=== PATIENT | male | born 1950 | race Hispanic/Latino ===

== ENCOUNTER 2022-06-08 16:29 | Inpatient (IN) | payer OTHER ==
[~2022-06-08] VITALS: Ht 170.2 cm; Wt 96.8 kg
[~2022-06-08 16:29] MED LIST: METO5 PO
[2022-06-08 17:03] LABS: BASOPHILS % (AUTO) 0.3 % (0.0-5.0); EOSINOPHILS % (AUTO) 0.7 % (0.0-8.0); HEMATOCRIT 54.6 % (42-54); LYMPHOCYTES % (AUTO) 18.3 % (21.0-51.0); MEAN CORPUSCULAR HEMOGLOBIN 26.8 pg (27.0-33.0); MEAN CORPUSCULAR HGB CONC 32.6 g/dL (32.0-36.0); MEAN CORPUSCULAR VOLUME 82.2 fL (79-99); MONOCYTES % (AUTO) 14.5 % (3.0-13.0); PLATELET COUNT (AUTO) 331 K/uL (130-400); RED BLOOD CELL COUNT(AUTO) 6.64 MIL/uL (4.50-6.20); WHITE BLOOD COUNT (AUTO) 5.7 K/uL (4.8-10.8)
[2022-06-08 17:18] LABS: CREATININE 3.1 mg/dL (0.5-1.5); POTASSIUM 4.5 mmol/L (3.5-5.1); TOTAL PROTEIN, SERUM 9.2 g/dL (6.0-8.3)
[2022-06-08] MEDS ORDERED: 0.9%NACL 1000ML 1,000 ML IV ONE ×2 (17:30→19:00)
[2022-06-08] MEDS ORDERED: ONDANSETRON 4MG INJ IVP ONE (17:30)
[2022-06-08] MEDS ORDERED: MAGNESIUM SULFATE 1 GM/2 ML VIAL IM ONE (21:00)
[2022-06-08] MEDS ORDERED: DiphenhydrAMINE HCL 50 MG/ML VIAL IV PRN (21:00)
[2022-06-08] MEDS ORDERED: ROCURONIUM BROMIDE 10MG/1ML 5ML VL IV ONE (21:00)
[2022-06-08] MEDS ORDERED: AMIODARONE 150MG VIAL IV ONE ×2 (21:00)
[2022-06-08] MEDS ORDERED: EPINEPHRINE 1MG/10ML(1:10,000) 0.1 MG/ML SYG IVP ONE (21:00)
[2022-06-08] MEDS ORDERED: ETOMIDATE 20MG VIAL IVP ONE (21:00)
[2022-06-08] MEDS ORDERED: ONDANSETRON 4MG INJ IV PRN (21:00)
[2022-06-08] MEDS ORDERED: LIDOCAINE PF 100MG/5ML (2%) SYRINGE 5ML IVP ONE (21:00)
[2022-06-08] MEDS ORDERED: SODIUM BICARB 8.4% 50ML SYRINGE IVP ONE ×2 (21:00)
[2022-06-08] MEDS ORDERED: DOPAMINE HCL 400 MG/D5%-WATER 250 ML IV ONE (21:00)
[2022-06-08] MEDS: FAMOTIDINE 20MG VIAL IV SCH (21:10)
[2022-06-08] MEDS: 0.9%NACL 1000ML 1,000 ML IV SCH (21:10)
[2022-06-09] VITALS (7 sets, daily range): BP systolic 141–161; BP diastolic 72–85
[2022-06-09 06:49] LABS: HEMATOCRIT 49.9 % (42-54); MEAN CORPUSCULAR HEMOGLOBIN 26.7 pg (27.0-33.0); MEAN CORPUSCULAR HGB CONC 32.3 g/dL (32.0-36.0); MEAN CORPUSCULAR VOLUME 82.8 fL (79-99); RED BLOOD CELL COUNT(AUTO) 6.03 MIL/uL (4.50-6.20); RED CELL DISTRIBUTION WIDTH 14.6 % (11.0-15.5)
[2022-06-09] MEDS: 0.9%NACL 1000ML 1,000 ML IV SCH ×2 (06:51→20:01)
[2022-06-09 06:57] LABS: HEMOGLOBIN A1C 6.1 % (4.0-6.0)
[2022-06-09 06:59] LABS: CREATININE 2.5 mg/dL (0.5-1.5); POTASSIUM 4.3 mmol/L (3.5-5.1)
[2022-06-09] MEDS: FAMOTIDINE 20MG VIAL IV SCH (20:35)
[2022-06-10] VITALS (9 sets, daily range): BP systolic 95–157; BP diastolic 45–86
[2022-06-10] MEDS: MORPHINE 2 MG SYG IVP PRN ×2 (00:30→17:45)
[2022-06-10] MEDS: NITROGLYCERIN 0.4 MG SL TAB SL PRN ×6 (01:15→16:54)
[2022-06-10 05:26] LABS: BASOPHILS % (AUTO) 0.2 % (0.0-5.0); EOSINOPHILS % (AUTO) 0.2 % (0.0-8.0); HEMATOCRIT 48.5 % (42-54); LYMPHOCYTES % (AUTO) 8.2 % (21.0-51.0); MEAN CORPUSCULAR HEMOGLOBIN 26.7 pg (27.0-33.0); MEAN CORPUSCULAR HGB CONC 31.1 g/dL (32.0-36.0); MEAN CORPUSCULAR VOLUME 85.7 fL (79-99); MONOCYTES % (AUTO) 7.8 % (3.0-13.0); NEUTROPHILS % (AUTO) 83.1 % (40.0-77.0); PLATELET COUNT (AUTO) 282 K/uL (130-400); RED BLOOD CELL COUNT(AUTO) 5.66 MIL/uL (4.50-6.20); RED CELL DISTRIBUTION WIDTH 14.5 % (11.0-15.5); WHITE BLOOD COUNT (AUTO) 5.7 K/uL (4.8-10.8)
[2022-06-10 05:45] LABS: ALBUMIN 3.2 g/dL (3.5-5.0); CREATININE 1.9 mg/dL (0.5-1.5); POTASSIUM 4.7 mmol/L (3.5-5.1); TOTAL PROTEIN, SERUM 7.5 g/dL (6.0-8.3)
[2022-06-10] MEDS: 0.9%NACL 1000ML 1,000 ML IV SCH ×2 (06:00→13:00)
[2022-06-10] MEDS ORDERED: ASPIRIN 81 MG EC TAB PO SCH (17:30)
[2022-06-10] MEDS ORDERED: ATORVASTATIN 40 MG TABLET PO SCH (17:30)
[2022-06-10] MEDS ORDERED: HEPARIN 25,000 UNITS/250ML D5W 250 ML IV SCH (17:43)
[2022-06-10 18:09] LABS: BASOPHILS % (AUTO) 0.3 % (0.0-5.0); EOSINOPHILS % (AUTO) 0.5 % (0.0-8.0); HEMATOCRIT 46.4 % (42-54); LYMPHOCYTES % (AUTO) 8.8 % (21.0-51.0); MEAN CORPUSCULAR HEMOGLOBIN 26.5 pg (27.0-33.0); MEAN CORPUSCULAR HGB CONC 31.7 g/dL (32.0-36.0); MEAN CORPUSCULAR VOLUME 83.6 fL (79-99); MONOCYTES % (AUTO) 11.3 % (3.0-13.0); NEUTROPHILS % (AUTO) 78.7 % (40.0-77.0); PLATELET COUNT (AUTO) 323 K/uL (130-400); RED BLOOD CELL COUNT(AUTO) 5.55 MIL/uL (4.50-6.20); RED CELL DISTRIBUTION WIDTH 14.4 % (11.0-15.5); WHITE BLOOD COUNT (AUTO) 7.5 K/uL (4.8-10.8)
[2022-06-10 18:23] LABS: INR 1.03 (0.85-1.15); PROTHROMBIN TIME 11.2 SEC (9.6-11.6)
[2022-06-10 18:24] LABS: PARTIAL THROMBOPLASTIN TIME 30.3 SEC (26.3-35.5)
[2022-06-10] MEDS ORDERED: METOPROLOL SUCCINATE 25 MG TAB.SR.24H PO SCH (18:30)
[2022-06-10] MEDS ORDERED: IOHEXOL 350 MG/ML 100ML INFUS..BTL IV ONE (19:10)
[2022-06-10] MEDS ORDERED: AMIODARONE 900MG VIAL 150 MG in DEXTROSE 5%-WATER 100 ML IV SCH (19:30)
[2022-06-10] MEDS ORDERED: AMIODARONE 900MG VIAL 540 MG in DEXTROSE 5%-WATER 300 ML IV SCH (19:30)
[2022-06-10] MEDS ORDERED: PHARMACY COMMUNICATION MISC SCH (19:30)
[2022-06-10] MEDS ORDERED: NOREPINEPHRINE 4MG/NS 250ML IV SCH (19:30)
[2022-06-10] MEDS ORDERED: AMIODARONE 900MG VIAL 360 MG in DEXTROSE 5%-WATER 200 ML IV SCH (19:30)
[2022-06-10] MEDS ORDERED: NACL 0.9% IV SCH (20:30)
[2022-06-10] MEDS ORDERED: EPINEPHRINE IV SCH (20:30)
[2022-06-10] MEDS ORDERED: EPINEPHRINE 1MG/10ML(1:10,000) 0.1 MG/ML SYG IVP ONE (20:30)
[2022-06-10] MEDS ORDERED: NITROGLYCERIN 1GM OINT 1 INCH/1GM TD SCH (22:00)
[2022-06-11] MEDS ORDERED: METOPROLOL SUCCINATE 25 MG TAB.SR.24H PO SCH (09:00)
== END 2022-06-10 21:01 | DRG 393 ==
LOC: EDH 16:29 → EDHIP 20:37 → 3BH 06-09 00:30 → 2CH 06-10 20:25
PROVIDERS: ADMIT Internal Medicine; ATTEND Internal Medicine
PROC: 0D9670Z Drainage of Stomach with Drainage Device, Via Natural or Artificial Opening (ICD-10-PCS; 2022-06-08)
PROC: 5A12012 Performance of Cardiac Output, Single, Manual (ICD-10-PCS; principal; 2022-06-10)
DX: K42.0 Umbilical hernia with obstruction, without gangrene (principal); I21.4 Non-ST elevation (NSTEMI) myocardial infarction; N17.9 Acute kidney failure, unspecified; E86.0 Dehydration; K80.20 Calculus of gallbladder without cholecystitis without obstruction; E66.9 Obesity, unspecified; N18.31 Chronic kidney disease, stage 3a; I46.9 Cardiac arrest, cause unspecified; I49.01 Ventricular fibrillation; Z82.49 Family history of ischemic heart disease and other diseases of the circulatory system; Z85.46 Personal history of malignant neoplasm of prostate; Z87.19 Personal history of other diseases of the digestive system; Z87.891 Personal history of nicotine dependence; Z68.33 Body mass index [BMI] 33.0-33.9, adult
CPT/HCPCS: 31500; 36415; 70450; 71275; 74018; 74176; 74177; 80048; 80053; 82550; 82948; 83036; 83690; 83874; 84484; 85025; 85027; 85610; 85730; 92950; 93005; 94002; G0378; J0171; J0282; J1265; J1644; J2001; J2405; J3475; J3490; J7030; J7050; J7060; Q9967